=== PATIENT | female | born 1960 | race Caucasian/White ===

== ENCOUNTER → 2023-08-09 | Outpatient (CLI) | payer OTHER ==
--- NOTE | 2023-08-12 08:00 | BD ---
EXAMINATION TYPE: Axial Bone Density DATE OF EXAM: 08/09/2023 CLINICAL HISTORY: 63 years old Female. ICD-10 CODE: M85.88 OTH DISORDER OF BONE DENSITY Height: 65 Weight: 171.2 FRAX RISK QUESTIONS: Alcohol (3 or more units per day): no Family History (Parent hip fracture): no Glucocorticoids (More than 3mos): no History of Fracture in Adulthood: no Secondary Osteoporosis: 1. Type 1 Diabetes: no 2. Hyperthyroidism: no 3. Menopause before 45: no 4. Malnutrition: no 5. Chronic liver disease: no Rheumatoid Arthritis: no Current Tobacco Use: no RISK FACTORS HISTORY OF: Hip Fracture (Right/Left): no Spine Fracture: no History of Wrist Fracture: no Surgery to Spine/Hip(right/left)/Wrist (right/left): no Family History of Osteoporosis: Sister Active: yes Diet low in dairy products/other sources of calcium: no Postmenopausal woman: yes Take estrogen and/or progesterone medications: no Lost more than 2 inches in height since high school: no Frequent falls: no Poor Health: no Hyperparathyroidism: no Adrenal Insufficiency: no MEDICATIONS: Prednisone or other steroids: no Thyroid Medications: no Osteoporosis Medications: no Additional Medications: Vit D, Magnesium, Additional History: EXAM MEASUREMENTS: Bone mineral densitometry was performed using the hiogi System. Bone mineral density as measured about the Lumbar spine is: ----- L1-L4(G/cm2): 0.945 T Score Values are as follows: ----- L1: -1.4 ----- L2: -2.3 ----- L3: -2.4 ----- L4: -1.9 ----- L1-L4: -2.0 Z Score Values are as follows: ----- L1: -0.4 ----- L2: -1.3 ----- L3: -1.4 ----- L4: -0.9 ----- L1-L4: -0.9 Baseline Study Bone mineral density about the R hip (g/cm2):0.831 Bone mineral density about the L hip (g/cm2): 0.832 T Score values are as follows: -----R Neck: -1.7 -----L Neck: -1.8 -----R Total: -1.4 -----L Total: -1.4 Z Score values are as follows: -----R Neck: -0.6 -----L Neck: -0.7 -----R Total: -0.6 -----L Total: -0.6 Baseline Study FRAX%s: The graph provided illustrates a 9.4% chance for a major osteoporotic fx and a 1.1% chance fo r the hips probability for fx in 10 years time. IMPRESSION: Osteopenia (T Score between -2.5 and -1). There is slightly increased risk of fracture and the patient may be considered for treatment. Re-Screen 2-5 years. NOTE: T-SCORE=SD OF THE YOUNG ADULT MEAN.
--- NOTE | 2023-08-12 09:43 | MM ---
Reason for Exam: Screening (asymptomatic). Last mammogram was performed 1 year(s) and 8 month(s) ago. Patient History: Menarche at age 12. First Full-Term at age 20. Postmenopausal. Patient has history of breast feeding. Sister had breast cancer, age 44. Sister had breast cancer, age 49. Risk Values: Estelle 5 year model risk: 3.0%. NCI Lifetime model risk: 12.4%. Prior Study Comparison: 06/05/2016 Bilateral Screening Mammogram, [facility]. 08/15/2018 Bilateral Screening Mammogram, [facility]. 09/29/2019 Bilateral Screening Mammogram, [facility]. 12/05/2021 Bilateral Screening Mammogram, [facility]. Tissue Density: The breast tissue is heterogeneously dense. This may lower the sensitivity of mammography. Findings: Analyzed By CAD. There is no suspicious group of microcalcifications or new suspicious mass. Overall Assessment: Negative, BI-RAD 1 Management: Screening Mammogram of both breasts in [address] [facility] will attempt to contact patient to return for supplemental views and ultrasound if indicated. Patient should continue monthly self-breast exams. A clinical breast exam by your physician is recommended on an annual basis. This exam should not preclude additional follow-up of suspicious palpable abnormalities. Note on Estelle scores and lifetime risk: 1. A Estelle score greater than 3% is considered moderate risk. If this is the case, consider specialist referral to assess eligibility for a risk reducing agent. 2. If overall lifetime risk for the development of breast cancer is 20% or higher, the patient may qualify for future screening with alternating mammogram and breast MRI. Electronically signed and approved by: Dillan Wilcox DO
== END | disposition home or self-care (01) ==
LOC: RADBDWWP 11:52
PROVIDERS: ATTEND Obstetrics & Gynecology
DX: Z12.31 Encounter for screening mammogram for malignant neoplasm of breast (principal); M85.89 Other specified disorders of bone density and structure, multiple sites; Z78.0 Asymptomatic menopausal state; Z80.3 Family history of malignant neoplasm of breast
CPT/HCPCS: 77063; 77067; 77080